=== PATIENT | female | born 1945 | race Caucasian/White ===

== ENCOUNTER 2017-02-24 08:58 | Outpatient (CLI) ==
--- NOTE | 2017-02-24 09:24 | DI ---
EXAM: PA and lateral views of the chest HISTORY: Chronic obstructive pulmonary disease COMPARISON: Chest x-ray 08/13/[address] chest 06/27/2012 FINDINGS: The cardiomediastinal silhouette is normal. There is no pneumothorax or pleural effusion . There is no consolidation, nodule or mass. Lungs are hyperinflated with apical pleural thickenin g and traction bronchiectasis. The osseous structures are unchanged IMPRESSION: Hyperinflation and changes consistent with chronic obstructive pulmonary disease. There is no acute consolidation.
== END 2017-02-24 08:59 | disposition home or self-care (01) ==
LOC: RAD 08:58
PROVIDERS: ATTEND Nurse Practitioner Family
DX: J44.9 Chronic obstructive pulmonary disease, unspecified (principal)

== ENCOUNTER 2018-01-09 17:27 | Emergency (ER) ==
[2018-01-09 17:40] VITALS: BP 139/61; TEMP 96.5
[2018-01-09] MEDS ORDERED: DUONEB NEB STA (17:43)
[2018-01-09] MEDS ORDERED: SOLU-MEDROL 125 MG IVP STA (17:43)
--- NOTE | 2018-01-09 17:48 | ED.PDOC ---
General ED Provider: Dr. SUZY ROSALES Chief Complaint: Shortness of Air Stated Complaint: Patient is a 72 year old female who has a history of COPD on home oxygen at 5 liters comes to the ER with severe shortness of breath with weakness and limp saturation was 52. Time Seen by Physician: 17:48 Mode of Arrival: Walk-In Information Source: Family Primary Care Provider: NURYS BECKER Nursing and Triage Documentation Reviewed and Agree: Yes Reviewed sepsis parameters & appropriate labs ordered?: No System Inflammatory Response Syndrome: Pulse >90 BPM Sepsis Protocol: For patient's 13 years and over: Temp is 96.8 and below OR 101 and greater Pulse >90 BPM Resp >20/minute Acutely Altered Mental Status Are patient's symptoms suggestive of a new infection, such as: -Pneumonia -Skin, Soft Tissue -Endocarditis -UTI -Bone, Joint Infection -Implantable Device -Acute Abdominal Infection -Wound Infection -Meningitis -Blood Stream Catheter Infection -Unknown System Inflammatory Response Syndrome: Not Applicable Respiratory Complaint Exam - Respiratory Complaint/Exam Onset/Duration: just prior to arrival Symptoms Are: Still present Timing: Constant Initial Severity: Moderate Current Severity: Severe Location: Chest Character: Reports: Non-productive cough Aggravating: Reports: URI, Weather Associated Signs and Symptoms: Reports: Wheezing, URI. Denies: Rapid breathing , Dyspnea, Fever, Chills, Chest pain, Pleuritic chest pain, Hemoptysis, Dizziness, Calf pain, Calf swelling, Edema, Nasal congestion, Hoarseness, Sinus discomfort, Vomiting, Sore throat, Weight loss, Decreased oral intake, Increased thirst, Increased appetite, Increased urination Cardiac Risk Factors: Denies: Smoking, Elevated lipids Tuberculosis Risk Factors: Reports: Chronic Resp. Faliure. Denies: Communal living Home Oxygen Use: Yes (5 liters ) Recent Stress Test: No Recent Echo/LV Function: No Current Antibiotic Use: No Current Asthma Medication Use: Yes Respiratory Distress: Severe Inadequate Respiratory Effort: Yes Dysphagia Present: No Accessory Muscle Use: Yes Diminished Breath Sounds: Yes Sinus Tenderness: None Grunting Respirations: No Kussmaul Respirations: No Differential Diagnoses: Asthma, COPD Exacerbation, Pneumonia Review of Systems - Review Of Systems Constitutional: Reports: Weakness Ears, Nose, Mouth, Throat: Reports: No symptoms Respiratory: Reports: Short of air Cardiac: Reports: No symptoms GI: Reports: No symptoms : Reports: No symptoms Musculoskeletal: Reports: No symptoms Skin: Reports: No symptoms Neurological: Reports: Anxiety, Depressed Endocrine: Reports: No symptoms Hematologic/Lymphatic: Reports: No symptoms All Other Systems: Reviewed and Negative Past Medical History - Past Medical History Endocrine: Reports: DM 2, Hypothyroid, Dyslipidemia Cardiovascular: Reports: Hypertension Respiratory: Reports: COPD Hematological: Reports: Anemia (is on Iron ) Gastrointestinal: Reports: None Genitourinary: Reports: None Neuro/Psych: Reports: Anxiety, Depression Musculoskeletal: Reports: Arthritis Cancer: Reports: None Last Menstrual Period: HYSTERECTOMY - Surgical History General Surgical History: Reports: Hysterectomy, Cholecystectomy, Other ( Bladder sling ) - Family History Family History: Reports: None - Social History Smoking Status: Never smoker Hx Substance Use: No Alcohol Screening: None Physical Exam - Physical Exam Appearance: Ill-appearing, Obese Ill-appearing: Severe Eyes: MARIA FERNANDA, EOMI Respiratory: Airway patent, Breath sounds equal, Wheezes Cardiovascular: RRR, Pulses normal, No rub, No murmur GI/: Soft Musculoskeletal: No edema Skin: Pale, Cyanotic Neurological: Alert to verbal, Alert to pain Psychiatric: Anxious Interpretation - Radiology Interpretation Radiology Interpretation By: Radiologist Radiology Results: Positive Exam Interpreted: CXR (Bilateral Pneumoina. ) - Manager International Rate: Normal Rhythm: Sinus Ectopy: None - EKG Interpretation Time of EKG #1: 18:08 Rate: Normal Rhythm: Sinus Ectopy: None [place]: [place] Interpretation: Normal EKG Re-Evaluation - Re-Evaluation Time of Re-Evaluation: 19:30 Status: Improved Vital Signs Stable: Yes (Blood pressure ) Lungs: Clear Skin: Warm and Dry Neuro: Alert and Oriented X3 (more awake and responsive.) Physician Notification - Case Discussed Physician Notified: Dr. Whitt Time of Notification: 19:30 (Accepted for transfer to [facility] ICU ) Critical Care Note - Critical Care Note Total Time (mins): 65 Course - Course Hematology/Chemistry: 01/09/18 18:00 01/09/18 18:00 Orders, Labs, Meds: Lab Review 01/09/18 01/09/18 01/09/18 17:46 18:00 18:00 WBC 12.66 H RBC 2.14 L Hgb 5.6 L* Hct 19.8 L MCV 92.5 MCH 26.2 L MCHC 28.3 L RDW Coeff of Preeti 18.0 H Plt Count 350 Immature Gran % (Auto) 1.7 Neut % (Auto) 80.5 Lymph % (Auto) 9.6 L [place] % (Auto) 7.3 Eos % (Auto) 0.6 Baso % (Auto) 0.3 Immature Gran # (Auto) 0.2 Neut # (Auto) 10.2 H Lymph # (Auto) 1.2 [place] # (Auto) 0.9 Eos # (Auto) 0.1 Baso # (Auto) 0.0 D-Dimer (Manual) Puncture Site R brach O2 Saturation 99.0 ABG pH 7.24 L* ABG pCO2 94.9 H ABG pO2 145.0 H ABG HCO3 40 H ABG Total CO2 43 H ABG Base Excess 13 H Tahir Test + O2 Delivery Device Nrb Oxygen Liter Flow 15.00 FiO2 % 100.0 Sodium 138 Potassium 5.2 H Chloride 96 L Carbon Dioxide 36 H Anion Gap 11.2 BUN 12 Creatinine 0.76 Estimated GFR (MDRD) 75.00 BUN/Creatinine Ratio 15.78 Glucose 212 H Lactic Acid Calcium 8.8 Total Bilirubin 0.2 AST 19 ALT 26 Alkaline Phosphatase 95 Total Protein 6.7 Albumin 2.8 L Globulin 3.9 Albumin/Globulin Ratio 0.72 Procalcitonin Stl Occult Blood (IFOB) Stool Occult Blood #2 Stool Occult Blood #3 01/09/18 01/09/18 01/09/18 18:00 18:00 18:00 WBC RBC Hgb Hct MCV MCH MCHC RDW Coeff of Preeti Plt Count Immature Gran % (Auto) Neut % (Auto) Lymph % (Auto) [place] % (Auto) Eos % (Auto) Baso % (Auto) Immature Gran # (Auto) Neut # (Auto) Lymph # (Auto) [place] # (Auto) Eos # (Auto) Baso # (Auto) D-Dimer (Manual) 888.17 Puncture Site O2 Saturation ABG pH ABG pCO2 ABG pO2 ABG HCO3 ABG Total CO2 ABG Base Excess Tahir Test O2 Delivery Device Oxygen Liter Flow FiO2 % Sodium Potassium Chloride Carbon Dioxide Anion Gap BUN Creatinine Estimated GFR (MDRD) BUN/Creatinine Ratio Glucose Lactic Acid 9.6 Calcium Total Bilirubin AST ALT Alkaline Phosphatase Total Protein Albumin Globulin Albumin/Globulin Ratio Procalcitonin 0.06 Stl Occult Blood (IFOB) Stool Occult Blood #2 Stool Occult Blood #3 01/09/18 01/09/18 18:35 18:37 WBC RBC Hgb Hct MCV MCH MCHC RDW Coeff of Preeti Plt Count Immature Gran % (Auto) Neut % (Auto) Lymph % (Auto) [place] % (Auto) Eos % (Auto) Baso % (Auto) Immature Gran # (Auto) Neut # (Auto) Lymph # (Auto) [place] # (Auto) Eos # (Auto) Baso # (Auto) D-Dimer (Manual) Puncture Site r brach O2 Saturation 90.0 L ABG pH 7.32 L ABG pCO2 78.0 H ABG pO2 67.0 L ABG HCO3 40 H ABG Total CO2 42 H ABG Base Excess 14 H Tahir Test + O2 Delivery Device bipap Oxygen Liter Flow FiO2 % 50.0 Sodium Potassium Chloride Carbon Dioxide Anion Gap BUN Creatinine Estimated GFR (MDRD) BUN/Creatinine Ratio Glucose Lactic Acid Calcium Total Bilirubin AST ALT Alkaline Phosphatase Total Protein Albumin Globulin Albumin/Globulin Ratio Procalcitonin Stl Occult Blood (IFOB) Negative Stool Occult Blood #2 No specimen received Stool Occult Blood #3 No specimen received Orders Category Date Time Status ABG DRAW REQUEST Stat CARDIO 01/09/18 17:46 Completed ABG DRAW REQUEST Stat CARDIO 01/09/18 18:37 Completed BIPAP Routine CARDIO 01/09/18 17:46 Completed EKG-(ED ONLY) Stat CARDIO 01/09/18 18:52 Completed NEBULIZER TREATMENT Stat CARDIO 01/09/18 17:45 Completed ED APPLY O2 .ONCE EMERGENCY 01/09/18 17:43 Active ED TAX LAWYER APPLIED .ONCE EMERGENCY 01/09/18 17:43 Active Ramirez [ED CATHETER INSERTION AND CARE] .ONCE EMERGENCY 01/09/18 18:37 Active IV [ED IV/MEDIPORT/POWERPORT] .ONCE EMERGENCY 01/09/18 17:55 Active ABG Stat LAB 01/09/18 17:46 Completed ABG Stat LAB 01/09/18 18:37 Completed BLOOD CULTURE (ED ONLY) Stat LAB 01/09/18 18:00 Results CBC W/ AUTO DIFF Stat LAB 01/09/18 18:00 Completed COMPREHENSIVE METABOLIC PANEL Stat LAB 01/09/18 18:00 Completed D-DIMER Stat LAB 01/09/18 18:00 Completed LACTIC ACID Stat LAB 01/09/18 18:00 Completed OCCULT BLOOD, STOOL Stat LAB 01/09/18 18:35 Completed PROCALCITONIN Stat LAB 01/09/18 18:00 Completed 0.9 % Sodium Chloride [Saline Flush] MEDS 01/09/18 17:55 Discontinued 1 syr IVF PRN PRN Ipratropium/Albuterol Neb [Duoneb] MEDS 01/09/18 17:43 Discontinued 1 vial NEB ONCE STA Lidocaine HCl [Uro-Jet] MEDS 01/09/18 18:37 Discontinued 10 ml [id number] ONCE STA Methylprednisolone Sod Succ/Pf [Solu-Medrol 125 mg] MEDS 01/09/18 17:43 Discontinued 125 mg IVP ONCE STA Piperacillin Sodium/Tazobactam [Zosyn 3.375 gm] 3.375 MEDS 01/09/18 18:54 Discontinued gm 0.9 % Sodium Chloride [Sodium Chloride] 50 ml IV ONCE CHEST, 1V AP ONLY Stat RADS 01/09/18 17:47 Completed Medications Discontinued Medications Generic Name Dose Route Start Last Admin Trade Name Freq PRN Reason Stop Dose Admin Albuterol/Ipratropium 1 vial 01/09/18 17:43 01/09/18 17:30 Duoneb NEB 01/09/18 17:44 1 vial ONCE STA Administration Piperacillin Sod/Tazobactam 50 mls @ 50 mls/hr 01/09/18 18:54 01/09/18 19:16 Sod 3.375 gm/ Sodium Chloride IV 01/09/18 19:53 50 mls/hr ONCE STA Administration Lidocaine HCl 10 ml 01/09/18 18:37 01/09/18 18:38 Uro-Jet [id number] 01/09/18 18:38 Not Given ONCE STA Methylprednisolone Sodium Succinate 125 mg 01/09/18 17:43 01/09/18 17:45 Solu-Medrol 125 Mg IVP 01/09/18 17:44 125 mg ONCE STA Administration Sodium Chloride 1 syr 01/09/18 17:55 Saline Flush IVF PRN PRN To flush IV Vital Signs: Temp Pulse Resp BP Pulse Ox 01/09/18 17:50 95 01/09/18 17:28 96.5 F L 94 H 10 L 139/61 52 L Departure - Departure Time of Disposition: 19:27 Disposition: TSF SHORT-TRM HOSP Discharge Problem: Bilateral pneumonia Qualifiers: Pneumonia type: due to unspecified organism Lung location: unspecified part of lung Qualified Code(s): J18.9 - Pneumonia, unspecified organism Anemia Qualifiers: Anemia type: iron deficiency Iron deficiency anemia type: unspecified iron deficiency Qualified Code(s): D50.9 - Iron deficiency anemia, unspecified Respiratory failure with hypercapnia Qualifiers: Chronicity: acute Qualified Code(s): J96.02 - Acute respiratory failure with hypercapnia Condition: Critical Pt referred to PMD for follow-up: Yes IPMP verified?: No Allergies/Adverse Reactions: Allergies No Known Allergies Allergy (Unverified 01/09/18 17:43) Home Medications: Ambulatory Orders Albuterol Sulfate [Proair Hfa] 1 puff INH DAILY 01/09/18 Amlodipine Besylate/Benazepril [Amlodipine-Benazepril 10-20 mg] 10 - 20 mg PO DAILY 01/09/18 Atorvastatin Calcium 40 mg PO DAILY 01/09/18 Budesonide/Formoterol Fumarate [Symbicort 160-4.5 Mcg Inhaler] 1 puff INH BID Bupropion HCl [Bupropion HCl ER] 200 mg PO DAILY 01/09/18 Citalopram Hydrobromide [Citalopram HBr] 20 mg PO DAILY 01/09/18 Gabapentin 300 mg PO BEDTIME 01/09/18 Iron Polysaccharide Complex [Poly-Iron] 150 mg PO BID 01/09/18 Meclizine HCl [Travel Sickness] 25 mg PO DAILY 01/09/18 Metformin HCl [Metformin HCl ER] 500 mg PO DAILY 01/09/18 Tiotropium [place] [Spiriva] 1 cap INH DAILY 01/09/18 Tramadol HCl [Ultram] 50 mg PO TID 01/09/18
[2018-01-09] MEDS ORDERED: URO-JET MUCOUSMEMB STA (18:37)
--- NOTE | 2018-01-09 18:51 | DI ---
EXAM: Single view of the chest. History: Cough. Comparison: Chest radiograph 02/24/2017 Findings: Heart size is normal. Bibasilar lung infiltrates. No pneumothorax. No acute osseous abn ormalities. Emphysema. Impression: Bibasilar pneumonia.
[2018-01-09] MEDS ORDERED: ZOSYN 3.375 GM 3.375 GM in SODIUM CHLORIDE 50 ML IV STA (18:54)
[2018-01-09 18:57] VITALS: BMI 33.0
== END 2018-01-09 20:20 | disposition short-term general hospital (02) ==
LOC: ED 17:27
DX: J18.9 Pneumonia, unspecified organism (principal); D50.9 Iron deficiency anemia, unspecified; J96.02 Acute respiratory failure with hypercapnia; J44.9 Chronic obstructive pulmonary disease, unspecified; E78.5 Hyperlipidemia, unspecified; E11.9 Type 2 diabetes mellitus without complications; E03.9 Hypothyroidism, unspecified; Z99.81 Dependence on supplemental oxygen; Z79.899 Other long term (current) drug therapy
CPT/HCPCS: 36415; 80053; 82272; 82803; 83605; 84145; 85025; 85379; 87040; 93005; 93010; 94640; 94660; 96365; 96375; 99285

== ENCOUNTER 2018-01-21 11:00 | Outpatient (CLI) | END 2018-01-21 11:01 | disposition short-term general hospital (02) | LOC: AMBL 11:00 | PROVIDERS: ATTEND Internal Medicine | DX: R53.1 Weakness (principal); R06.02 Shortness of breath; D64.9 Anemia, unspecified; R60.0 Localized edema ==

== ENCOUNTER 2018-01-31 10:10 | Emergency (ER) ==
[2018-01-31] MEDS ORDERED: DUONEB NEB STA (10:20)
[2018-01-31 10:25] VITALS: BP 169/71; TEMP 98.8; BMI 33.5
--- NOTE | 2018-01-31 10:36 | DI ---
Exam: Single x-ray of the chest. Comparison: 01/09/2018. Reason for exam: Short of air. FINDINGS: Similar appearing patchy airspace opacities in both lung bases with parenchymal changes garrison ggesting underlying chronic lung disease. The cardiac silhouette appears mildly prominent in size. Impression: Patchy airspace opacities in the lung bases likely representing atelectasis/pneumonia
[2018-01-31] MEDS ORDERED: ANECTINE ONE (10:42)
[2018-01-31] MEDS ORDERED: VERSED ONE ×2 (10:44→12:54)
[2018-01-31] MEDS ORDERED: NORCURON IVP STA (10:46)
[2018-01-31] MEDS ORDERED: SUBLIMAZE ONE (10:56)
[2018-01-31] MEDS ORDERED: NORCURON ONE (10:58)
--- NOTE | 2018-01-31 11:00 | ED.PDOC ---
General ED Provider: Dr. ROMELIA ROMAN Chief Complaint: Shortness of Air Stated Complaint: shortness of breath Time Seen by Physician: 10:12 (history from and son) Mode of Arrival: Wheelchair Information Source: Patient, Family Exam Limitations: Clinical condition Primary Care Provider: NURYS BECKER Referred to ED by: Other (PMD FAMILY CONTACTED OFFICE AND WAS TOLD TO BRING PT TO ED ) Nursing and Triage Documentation Reviewed and Agree: Yes (D/C FROM [facility] LAST WEEK , PT WAS THERE 4 DAYS ) Reviewed sepsis parameters & appropriate labs ordered?: Yes (FOR RESPIRATORY ISSUE AND GI BLLED AND TRANSFUSION) System Inflammatory Response Syndrome: Resp >20/Minute Sepsis Protocol: For patient's 13 years and over: Temp is 96.8 and below OR 101 and greater Pulse >90 BPM Resp >20/minute Acutely Altered Mental Status Are patient's symptoms suggestive of a new infection, such as: -Pneumonia -Skin, Soft Tissue -Endocarditis -UTI -Bone, Joint Infection -Implantable Device -Acute Abdominal Infection -Wound Infection -Meningitis -Blood Stream Catheter Infection -Unknown System Inflammatory Response Syndrome: Not Applicable Respiratory Complaint Exam - Respiratory Complaint/Exam Onset/Duration: 1 DAY AGO BECAME SHORT OF BREATH AND PROGRSSIVELY SOB Symptoms Are: Still present Timing: Constant Initial Severity: Moderate Current Severity: Moderate Character: Reports: Non-productive cough Aggravating: Reports: Recumbent position Associated Signs and Symptoms: Denies: Rapid breathing, Dyspnea, Fever, Chills, Chest pain, Pleuritic chest pain, Wheezing, Hemoptysis, Dizziness, Calf pain, Calf swelling, Edema, URI, Nasal congestion, Hoarseness, Sinus discomfort, Vomiting, Sore throat, Weight loss, Decreased oral intake, Increased thirst, Increased appetite, Increased urination History of Healthcare-Acquired Pneumonia: Admit w/in last 30 days (IN HOSPITAL) Related Surgical History: Reports: None Pulmonary Embolism Risk Factors: Bedrest Cardiac Risk Factors: Reports: Elevated lipids, Diabetes, Hypertension Tuberculosis Risk Factors: Reports: Diabetes, Chronic Resp. Faliure Status Asthmaticus Risk Factors: Reports: Prior Intubation Home Oxygen Use: Yes (5L AT ALL TIMES ) Recent Stress Test: No Recent Echo/LV Function: No Current Antibiotic Use: Yes Current Asthma Medication Use: Yes Respiratory Distress: Moderate Inadequate Respiratory Effort: Yes Dysphagia Present: No Stridor Present: No JVD Present: No Retractions: Not Present Diminished Breath Sounds: Yes Sinus Tenderness: None Grunting Respirations: No Kussmaul Respirations: No Differential Diagnoses: CHF, Pulmonary Edema, Pneumonia, Pulmonary Embolism, Bronchitis, Lower Resp. Infection Quality Indicators For Pneumonia: Antibiotics in 6hr-admit, SpO2 assessed, Empiric Antibiotic Rx, Mental status assessed Review of Systems - Review Of Systems Constitutional: Reports: Malaise, Weakness, Loss of appetite Eyes: Reports: No symptoms Ears, Nose, Mouth, Throat: Reports: No symptoms Respiratory: Reports: Cough, Short of air, Wheezing Cardiac: Reports: No symptoms GI: Reports: No symptoms : Reports: No symptoms Musculoskeletal: Reports: No symptoms Skin: Reports: No symptoms Neurological: Reports: No symptoms Endocrine: Reports: No symptoms Hematologic/Lymphatic: Reports: No symptoms All Other Systems: Reviewed and Negative Past Medical History - Past Medical History Previously Healthy: Yes Endocrine: Reports: DM 2, Hypothyroid, Dyslipidemia Cardiovascular: Reports: Hypertension Respiratory: Reports: COPD Hematological: Reports: Anemia (is on Iron ) Gastrointestinal: Reports: None Genitourinary: Reports: None Neuro/Psych: Reports: Anxiety, Depression Musculoskeletal: Reports: Arthritis Cancer: Reports: None Last Menstrual Period: unknown - Surgical History General Surgical History: Reports: Hysterectomy, Cholecystectomy, Other ( Bladder sling ) - Family History Family History: Reports: None - Social History Smoking Status: Never smoker Hx Substance Use: No Alcohol Screening: None Physical Exam - Physical Exam Appearance: Ill-appearing Ill-appearing: Severe Pain Distress: Mild Eyes: MARIA FERNANDA, EOMI, Conjunctiva clear ENT: Ears normal, Nose normal, Oropharynx normal Respiratory: Breath sounds diminished, Wheezes Cardiovascular: RRR, Pulses normal, No rub, No murmur GI/: Soft, Nontender, No masses, Bowel sounds normal, No Organomegaly Musculoskeletal: Normal strength, ROM intact, No edema, No calf tenderness Skin: Warm, Dry, Normal color Neurological: Sensation intact, Motor intact, Reflexes intact, Cranial nerves intact, Alert, Oriented Psychiatric: Affect appropriate, Mood appropriate Interpretation - Radiology Interpretation Radiology Interpretation By: Radiologist (INTUBATED) Procedures - Intubation Indication: Present: Respiratory Insufficiency, Airway Protection Time of Intubation: 10:46 (FIRST ATTEMPT) Medications: Yes: Succinylcholine, Propofol Type of Tube Used: Endotracheal Tube Size: 7.5 Cricoid Pressure Used: Yes Tube Ram Used: Yes Position of Tube at Lip: 21 Number of Attempts: 1 Suction Used: Yes Glidescope Used: No CO2 Detector Used: Yes Lung Sounds Equal Bilaterally: Yes Intubation Complications: Present: No complications Tube Inserted By: JESSIE LUTHER Tube Placement Verified by X-ray: Yes - Additional Procedures Additional Procedures: Other (E/J LINE FIRST ATTEMPT LEFT SIDE . LINE IN GOOD FUMCTION) Physician Notification - Case Discussed Physician Notified: jose Time of Notification: 12:21 Critical Care Note - Critical Care Note Total Time (mins): 120 Course - Course Hematology/Chemistry: 01/31/18 10:56 01/31/18 10:56 Orders, Labs, Meds: Lab Review 01/31/18 01/31/18 01/31/18 10:30 10:56 10:56 WBC 8.87 RBC 3.11 L Hgb 8.0 L Hct 28.8 L MCV 92.6 MCH 25.7 L MCHC 27.8 L RDW Coeff of Preeti 15.6 H Plt Count 400 Immature Gran % (Auto) 1.8 Neut % (Auto) 84.4 Lymph % (Auto) 7.0 L Rutherford % (Auto) 6.0 Eos % (Auto) 0.3 Baso % (Auto) 0.5 Immature Gran # (Auto) 0.2 Neut # (Auto) 7.5 H Lymph # (Auto) 0.6 Rutherford # (Auto) 0.5 Eos # (Auto) 0.0 Baso # (Auto) 0.0 Plt Morphology Comment Normal Hypochromasia 1+ Anisocytosis Not present Stomatocytes 1+ PT INR APTT Puncture Site R rad O2 Saturation 81.0 L ABG pH 7.296 L* ABG pCO2 107.4 H ABG pO2 55.0 L* ABG HCO3 52.4 H ABG Total CO2 > 50 H ABG Base Excess 26 H Tahir Test + O2 Delivery Device Nc Oxygen Liter Flow 5.00 FiO2 % Sodium 142 Potassium 5.4 H Chloride 91 L Carbon Dioxide 44 H* Anion Gap 12.4 BUN 6 L Creatinine 0.60 Estimated GFR (MDRD) 98.00 BUN/Creatinine Ratio 10.00 Glucose 123 H Calcium 8.9 Total Bilirubin 0.4 AST 20 ALT 18 Alkaline Phosphatase 95 Total Creatine Kinase 20 Troponin I < 0.0100 B-Natriuretic Peptide Total Protein 6.8 Albumin 2.8 L Globulin 4.0 Albumin/Globulin Ratio 0.70 Procalcitonin 01/31/18 01/31/18 01/31/18 10:56 10:56 10:56 WBC RBC Hgb Hct MCV MCH MCHC RDW Coeff of Preeti Plt Count Immature Gran % (Auto) Neut % (Auto) Lymph % (Auto) Rutherford % (Auto) Eos % (Auto) Baso % (Auto) Immature Gran # (Auto) Neut # (Auto) Lymph # (Auto) Rutherford # (Auto) Eos # (Auto) Baso # (Auto) Plt Morphology Comment Hypochromasia Anisocytosis Stomatocytes PT 9.8 INR 0.98 APTT 28.7 Puncture Site O2 Saturation ABG pH ABG pCO2 ABG pO2 ABG HCO3 ABG Total CO2 ABG Base Excess Tahir Test O2 Delivery Device Oxygen Liter Flow FiO2 % Sodium Potassium Chloride Carbon Dioxide Anion Gap BUN Creatinine Estimated GFR (MDRD) BUN/Creatinine Ratio Glucose Calcium Total Bilirubin AST ALT Alkaline Phosphatase Total Creatine Kinase Troponin I B-Natriuretic Peptide 72 Total Protein Albumin Globulin Albumin/Globulin Ratio Procalcitonin < 0.05 01/31/18 11:10 WBC RBC Hgb Hct MCV MCH MCHC RDW Coeff of Preeti Plt Count Immature Gran % (Auto) Neut % (Auto) Lymph % (Auto) Rutherford % (Auto) Eos % (Auto) Baso % (Auto) Immature Gran # (Auto) Neut # (Auto) Lymph # (Auto) Rutherford # (Auto) Eos # (Auto) Baso # (Auto) Plt Morphology Comment Hypochromasia Anisocytosis Stomatocytes PT INR APTT Puncture Site Rrad O2 Saturation 98.0 ABG pH 7.479 H ABG pCO2 66.3 H ABG pO2 98.0 ABG HCO3 49.3 H ABG Total CO2 50 H ABG Base Excess 26 H Tahir Test + O2 Delivery Device Vent Oxygen Liter Flow FiO2 % 50.0 Sodium Potassium Chloride Carbon Dioxide Anion Gap BUN Creatinine Estimated GFR (MDRD) BUN/Creatinine Ratio Glucose Calcium Total Bilirubin AST ALT Alkaline Phosphatase Total Creatine Kinase Troponin I B-Natriuretic Peptide Total Protein Albumin Globulin Albumin/Globulin Ratio Procalcitonin Orders Category Date Time Status ABG DRAW REQUEST Stat CARDIO 01/31/18 10:20 Completed ABG DRAW REQUEST Stat CARDIO 01/31/18 11:10 Completed EKG-(ED ONLY) Stat CARDIO 01/31/18 10:25 Completed NEBULIZER TREATMENT Stat CARDIO 01/31/18 10:20 Completed VENTILATOR Routine CARDIO 01/31/18 10:50 Ordered ED IV/MEDIPORT/POWERPORT .ONCE EMERGENCY 01/31/18 10:20 Active ABG Stat LAB 01/31/18 10:30 Completed ABG Stat LAB 01/31/18 11:10 Completed BLOOD CULTURE Stat LAB 01/31/18 10:56 Ordered BNP [B-TYPE NATRIURETIC PEPTIDE] Stat LAB 01/31/18 10:56 Completed CBC W/ AUTO DIFF Stat LAB 01/31/18 10:56 Completed COMPREHENSIVE METABOLIC PANEL Stat LAB 01/31/18 10:56 Completed CREATINE KINASE Stat LAB 01/31/18 10:56 Completed PARTIAL THROMBOPLASTIN TIME Stat LAB 01/31/18 10:56 Completed PROCALCITONIN Stat LAB 01/31/18 10:56 Completed PT WITH INR Stat LAB 01/31/18 10:56 Completed RBC MORPHOLOGY Stat LAB 01/31/18 10:56 Completed TROPONIN I Stat LAB 01/31/18 10:56 Completed 0.9 % Sodium Chloride [Saline Flush] MEDS 01/31/18 10:20 Active 1 syr IVF PRN PRN Ceftriaxone Sodium [Rocephin] MEDS 01/31/18 11:23 Discontinued 1 gm .ROUTE .STK-MED ONE Ceftriaxone Sodium [Rocephin] 1 gm MEDS 01/31/18 11:20 Discontinued 0.9 % Sodium Chloride [Sodium Chloride] 50 ml IV ONCE Fentanyl Vial [Sublimaze] MEDS 01/31/18 10:56 Discontinued 100 mcg .ROUTE .STK-MED ONE Fentanyl Vial [Sublimaze] MEDS 01/31/18 12:20 Stat 25 mcg IVP ONCE STA Ipratropium/Albuterol Neb [Duoneb] MEDS 01/31/18 10:20 Discontinued 1 vial NEB ONCE STA Midazolam HCl Inj [Versed] MEDS 01/31/18 10:44 Discontinued 5 mg .ROUTE .STK-MED ONE Propofol Inj [Diprivan 100 ml Vial] 100 ml MEDS 01/31/18 11:22 Discontinued IV .STK-MED Succinylcholine Chloride [Anectine] MEDS 01/31/18 10:42 Discontinued 20 mg .ROUTE .STK-MED ONE Vecuronium [place] [Norcuron] MEDS 01/31/18 10:58 Discontinued 10 mg .ROUTE .STK-MED ONE CHEST, 1V AP ONLY Stat RADS 01/31/18 10:19 Completed CHEST, 1V AP ONLY Stat RADS 01/31/18 11:14 Completed Medications Generic Name Dose Route Start Last Admin Trade Name Fremarita PRN Reason Stop Dose Admin Sodium Chloride 1 syr 01/31/18 10:20 01/31/18 11:52 Saline Flush IVF 1 syr PRN PRN Administration To flush IV Discontinued Medications Generic Name Dose Route Start Last Admin Trade Name Fremarita PRN Reason Stop Dose Admin Albuterol/Ipratropium 1 vial 01/31/18 10:20 01/31/18 10:20 Duoneb NEB 01/31/18 10:21 1 vial ONCE STA Administration Fentanyl Citrate 25 mcg 01/31/18 12:20 Sublimaze IVP 01/31/18 12:21 ONCE STA Ceftriaxone Sodium 1 gm/ 50 mls @ 75 mls/hr 01/31/18 11:20 01/31/18 11:37 Sodium Chloride IV 01/31/18 11:59 75 mls/hr ONCE STA Administration Vital Signs: Temp Pulse Resp BP Pulse Ox 01/31/18 10:50 20 01/31/18 10:11 98.8 F 100 H 24 169/71 H 93 L Departure - Departure Time of Disposition: 12:00 Disposition: TSF SHORT-TRM HOSP Discharge Problem: Anemia Acute respiratory failure Qualifiers: Respiratory failure complication: hypoxia Qualified Code(s): J96.01 - Acute respiratory failure with hypoxia Instructions: COPD (Chronic Obstructive Pulmonary Disease) (ED) Condition: Good Pt referred to PMD for follow-up: Yes IPMP verified?: No Additional Instructions: Please call your Family Physician as soon as possible to schedule a follow-up appointment. Allergies/Adverse Reactions: Allergies No Known Allergies Allergy (Verified 01/31/18 10:29) Home Medications: Ambulatory Orders Albuterol Sulfate [Proair Hfa] 1 puff INH DAILY 01/09/18 Amlodipine Besylate/Benazepril [Amlodipine-Benazepril 10-20 mg] 10 - 20 mg PO DAILY 01/09/18 Atorvastatin Calcium 40 mg PO DAILY 01/09/18 Budesonide/Formoterol Fumarate [Symbicort 160-4.5 Mcg Inhaler] 1 puff INH BID Bupropion HCl [Bupropion HCl ER] 200 mg PO DAILY 01/09/18 Citalopram Hydrobromide [Citalopram HBr] 20 mg PO DAILY 01/09/18 Gabapentin 300 mg PO BEDTIME 01/09/18 Iron Polysaccharide Complex [Poly-Iron] 150 mg PO BID 01/09/18 Meclizine HCl [Travel Sickness] 25 mg PO DAILY 01/09/18 Metformin HCl [Metformin HCl ER] 500 mg PO DAILY 01/09/18 Tiotropium [place] [Spiriva] 1 cap INH DAILY 01/09/18 Tramadol HCl [Ultram] 50 mg PO TID 01/09/18 Disposition Discussed With: Patient
[2018-01-31] MEDS ORDERED: DIPRIVAN 100 ML VIAL 1,000 MG in PREMIX INFUSION 100 ML VIAL 1 VIAL IV SCH (11:01)
--- NOTE | 2018-01-31 11:17 | ED.PDOC ---
Procedures - Intubation Time of Intubation: 10:45 Medications: Yes: Norcuron, Succinylcholine, Versed, Propofol, Other (fentanyl see nsg notes for times and dosages) Type of Tube Used: Endotracheal Tube Size: 7.5 Cricoid Pressure Used: Yes Tube Ram Used: Yes Position of Tube at Lip: 21cm Number of Attempts: 1 Suction Used: No Glidescope Used: No CO2 Detector Used: Yes Lung Sounds Equal Bilaterally: Yes Intubation Complications: Present: No complications Tube Inserted By: Dr Mclaughlin/Esvin Keita CRNA Tube Placement Verified by X-ray: Yes Conscious Sedation - Pre-op Assessment Weight: 214 lb 1.102 oz Surgical History: HYSTERECTROMY. GALLBLADDER. BLADDER SLING - Medical History Past Medical History: Hypertension, Diabetes, Thyroid, High Lipids, COPD, Depression, Anxiety, Arthritis Other History: GI bleed, Intubation
--- NOTE | 2018-01-31 11:18 | ED.PDOC ---
Procedures - IV/Art Line Insertion Location: lt wrist Type of Line: Peripheral IV Invasive Line/IV Catheter Gauge: 22 (IV line, / blood draw for lab) Number of Attempts: 1 Blood Return Positive: Yes Invasive Line/IV Flushes Without Difficulty: Yes Conscious Sedation - Pre-op Assessment Weight: 214 lb 1.102 oz Surgical History: HYSTERECTROMY. GALLBLADDER. BLADDER SLING - Medical History Past Medical History: Hypertension, Diabetes, Thyroid, High Lipids, COPD, Depression, Anxiety, Arthritis Other History: GI bleed, Intubation
[2018-01-31] MEDS ORDERED: ROCEPHIN 1 GM in SODIUM CHLORIDE 50 ML IV STA (11:20)
[2018-01-31] MEDS ORDERED: DIPRIVAN 100 ML VIAL 100 ML IV ONE (11:22)
[2018-01-31] MEDS ORDERED: ROCEPHIN ONE (11:23)
--- NOTE | 2018-01-31 11:46 | DI ---
EXAM: Chest one view, frontal view only. HISTORY: Intubation. COMPARISON: Earlier the same day at 1118 hours. FINDINGS: Endotracheal tube tip is at the level of the medial clavicles projecting over the tracheal air column. The heart size is normal. There is no pulmonary vascular congestion. There is increas ed opacity in both lung apices. Peribronchial thickening seen in both lungs. There is haziness over the lung bases which could represent mild consolidation. No pleural effusion or pneumothorax is see n. No acute osseous abnormality is identified. IMPRESSION: Endotracheal tube in satisfactory position.
[2018-01-31] MEDS ORDERED: VERSED IVP STA ×2 (11:48→13:05)
[2018-01-31] MEDS ORDERED: SUBLIMAZE IVP STA ×3 (11:50→12:23)
[2018-01-31] MEDS ORDERED: ANECTINE IVP STA (11:59)
== END 2018-01-31 13:07 | disposition short-term general hospital (02) ==
LOC: ED 10:10
DX: J96.01 Acute respiratory failure with hypoxia (principal); D64.9 Anemia, unspecified; R06.02 Shortness of breath; J44.9 Chronic obstructive pulmonary disease, unspecified; E78.5 Hyperlipidemia, unspecified; E11.9 Type 2 diabetes mellitus without complications; I10 Essential (primary) hypertension; R53.1 Weakness; R53.83 Other fatigue; E03.9 Hypothyroidism, unspecified; Z79.899 Other long term (current) drug therapy
CPT/HCPCS: 36415; 80053; 82550; 82803; 83880; 84145; 84484; 85008; 85025; 85610; 85730; 87040; 93005; 93010; 94640; 96365; 96366; 96368; 96375; 96376; 99285

== ENCOUNTER 2018-02-12 14:54 | Outpatient (CLI) | END 2018-02-12 14:55 | disposition short-term general hospital (02) | LOC: AMBL 14:54 | PROVIDERS: ATTEND Emergency Medicine | DX: R06.02 Shortness of breath (principal); R53.83 Other fatigue; R41.0 Disorientation, unspecified; R06.2 Wheezing; J18.9 Pneumonia, unspecified organism ==

== ENCOUNTER 2018-03-07 01:31 | Outpatient (CLI) | END 2018-03-07 01:32 | disposition short-term general hospital (02) | LOC: AMBL 01:31 | PROVIDERS: ATTEND Internal Medicine | DX: R06.02 Shortness of breath (principal); R53.83 Other fatigue; I10 Essential (primary) hypertension; J44.9 Chronic obstructive pulmonary disease, unspecified; R40.2411 Glasgow coma scale score 13-15, in the field [EMT or ambulance] ==

== ENCOUNTER 2018-03-30 09:37 | Outpatient (CLI) ==
--- NOTE | 2018-03-30 10:10 | DI ---
EXAM: Two-view chest HISTORY: Chronic obstructive pulmonary disease COMPARISON: Single-view chest 01/31/2018 FINDINGS: The cardiomediastinal silhouette is stable. Emphysematous changes are again noted. There is bilateral apical pleural thickening with scarring within the right upper lobe. There is a thoracic dextroscoliosis. IMPRESSION: Emphysematous changes without evidence of active pulmonary disease.
== END 2018-03-30 09:38 | disposition home or self-care (01) ==
LOC: RAD 09:37
PROVIDERS: ATTEND Nurse Practitioner Family
DX: J44.9 Chronic obstructive pulmonary disease, unspecified (principal)

== ENCOUNTER 2018-10-15 21:41 | Emergency (ER) ==
[2018-10-15] MEDS: ATROPINE SULFATE SDV IVP STA ×2 (21:41→22:05)
[2018-10-15] MEDS: EPINEPHRINE 1 MG/10 ML SYRINGE IV STA ×2 (21:46→22:03)
[2018-10-15] MEDS: LEVOPHED 4 MG in SODIUM CHLORIDE 246 ML IV SCH (21:52)
[2018-10-15] MEDS: SODIUM CHLORIDE 1,000 ML IV STA (22:00)
[2018-10-15] MEDS: ROMAZICON IVP STA (22:05)
[2018-10-15] MEDS: SODIUM BICARBONATE 7.5% IVP STA ×2 (22:07→22:15)
--- NOTE | 2018-10-15 22:23 | ED.PDOC ---
Procedures - Intubation Time of Intubation: 22:00 Type of Tube Used: Endotracheal Cricoid Pressure Used: No Tube Ram Used: Yes Position of Tube at Lip: 22 Number of Attempts: 1 Suction Used: Yes Glidescope Used: No CO2 Detector Used: Yes Lung Sounds Equal Bilaterally: Yes Intubation Complications: Present: No complications Tube Placement Verified by X-ray: Yes Conscious Sedation - Pre-op Assessment Surgical History: HYSTERECTROMY. GALLBLADDER. BLADDER SLING - Medical History Past Medical History: Hypertension, Diabetes, Thyroid, High Lipids, COPD, Depression, Anxiety, Arthritis Other History: GI bleed, Intubation
--- NOTE | 2018-10-15 22:25 | ED.PDOC ---
General ED Provider: Dr. DONNIE HENDRICKSON-ER Chief Complaint: Non-specific Complaint Stated Complaint: found unresponsive at bedside---medics did cpr Time Seen by Physician: 22:23 Mode of Arrival: Ambulance Information Source: EMT Exam Limitations: Clinical condition Primary Care Provider: NURYS BECKER Nursing and Triage Documentation Reviewed and Agree: Yes Does patient meet sepsis criteria?: No System Inflammatory Response Syndrome: Not Applicable Sepsis Protocol: For patient's 13 years and over: Temp is 96.8 and below OR 101 and greater Pulse >90 BPM Resp >20/minute Acutely Altered Mental Status Are patient's symptoms suggestive of a new infection, such as: -Pneumonia -Skin, Soft Tissue -Endocarditis -UTI -Bone, Joint Infection -Implantable Device -Acute Abdominal Infection -Wound Infection -Meningitis -Blood Stream Catheter Infection -Unknown Cardiac Resuscitation - Cardiac Resuscitation/Physical Exam Onset/Duration: Unknown Witnessed Arrest: No Airway Prehospital Findings: Reports: Patent Breathing Prehospital Findings: Reports: Bradypnea Circulation/Rhythm Prehospital Findings: Reports: Pulses present Breathing Prehospital Intervention: Reports: Oxygen Circulation/Rhythm Prehospital Intervention: Reports: Chest compressions, IV/IO placed Breathing Prehospital Response: Present: ETT in airway Circulation/Rhythm Prehospital Response: Present: Pulses present Airway ED Findings: Patent Breathing ED Findings: Present: Apnea Disability/Neurological ED Findings: Present: Responsive Breathing ED Intervention: Oxygen Right Pupil: Reactive Left Pupil: Reactive Patient is a DNR: No Patient Has a Living Will: No Resuscitation Successful: Yes Differential Diagnoses: Acute MD, Asystole, Card. Rhythm Disturbance Quality Indicator For Non-Traumatic Chest Pain/Syncope: EKG Performed Past Medical History - Past Medical History Previously Healthy: Yes Endocrine: Reports: DM 2, Hypothyroid, Dyslipidemia Cardiovascular: Reports: Hypertension Respiratory: Reports: COPD Hematological: Reports: Anemia (is on Iron ) Gastrointestinal: Reports: None Genitourinary: Reports: None Neuro/Psych: Reports: Anxiety, Depression Musculoskeletal: Reports: Arthritis Cancer: Reports: None - Surgical History General Surgical History: Reports: Hysterectomy, Cholecystectomy, Other ( Bladder sling ) - Family History Family History: Reports: None - Social History Smoking Status: Never smoker Hx Substance Use: No Alcohol Screening: None Interpretation - Radiology Interpretation Radiology Interpretation By: ED Physician Radiology Results: Positive Exam Interpreted: Portable CXR Re-Evaluation - Re-Evaluation Time of Re-Evaluation: 22:25 Status: Improved Vital Signs Stable: No Appearance: NAD Lungs: Clear Skin: Warm and Dry Neuro: Alert and Oriented X3 CV: RRR Physician Notification - Case Discussed Physician Notified: dr cathie bae er Time of Notification: 22:30 Critical Care Note - Critical Care Note Total Time (mins): 60 Course - Course Hematology/Chemistry: 10/15/18 22:05 10/15/18 22:05 Orders, Labs, Meds: Lab Review 10/15/18 10/15/18 10/15/18 22:05 22:05 22:05 WBC 23.40 H RBC 2.85 L Hgb 7.5 L Hct 25.5 L MCV 89.5 MCH 26.3 L MCHC 29.4 L RDW Coeff of Preeti 15.3 H Plt Count 323 Neutrophils % (Manual) 29.0 L Lymphocytes % (Manual) 56.0 H Monocytes % (Manual) 3.0 Eosinophils % (Manual) 3.0 Metamyelocytes % 1.0 Reactive Lymphocytes 8.0 H Anisocytosis Not present Sodium 129.4 L Potassium 6.00 H Chloride 96.9 L Carbon Dioxide 19.0 L Anion Gap 19.50 BUN 32.9 H Creatinine 2.82 H Estimated GFR (MDRD) 16.00 BUN/Creatinine Ratio 11.66 Glucose 378.2 H Lactic Acid 7.19 H Calcium 8.25 L Total Bilirubin 0.12 L AST 54.4 H ALT 37.1 H Alkaline Phosphatase 88.5 Total Creatine Kinase Troponin I Total Protein 6.05 L Albumin 3.36 L Globulin 2.69 Albumin/Globulin Ratio 1.24 10/15/18 22:05 WBC RBC Hgb Hct MCV MCH MCHC RDW Coeff of Preeti Plt Count Neutrophils % (Manual) Lymphocytes % (Manual) Monocytes % (Manual) Eosinophils % (Manual) Metamyelocytes % Reactive Lymphocytes Anisocytosis Sodium Potassium Chloride Carbon Dioxide Anion Gap BUN Creatinine Estimated GFR (MDRD) BUN/Creatinine Ratio Glucose Lactic Acid Calcium Total Bilirubin AST ALT Alkaline Phosphatase Total Creatine Kinase 40.2 Troponin I < 0.012 Total Protein Albumin Globulin Albumin/Globulin Ratio Orders Category Date Time Status ABG DRAW REQUEST Stat CARDIO 10/15/18 21:51 Ordered EKG-(ED ONLY) Stat CARDIO 10/15/18 21:51 Ordered ABG Stat LAB 10/15/18 21:51 Ordered BLOOD CULTURE (ED ONLY) Stat LAB 10/15/18 22:05 Received CBC W/ AUTO DIFF Stat LAB 10/15/18 22:05 Completed COMPREHENSIVE METABOLIC PANEL Stat LAB 10/15/18 22:05 Completed CREATINE KINASE Stat LAB 10/15/18 22:05 Completed LACTIC ACID Stat LAB 10/15/18 22:05 Completed MANUAL DIFFERENTIAL Stat LAB 10/15/18 22:05 Completed PROCALCITONIN Stat LAB 10/15/18 22:05 Received TROPONIN I Stat LAB 10/15/18 22:05 Completed URINALYSIS C & S IF INDICATED Stat LAB 10/15/18 21:51 Uncollected 0.9 % Sodium Chloride [Sodium Chloride] 246 ml MEDS 10/15/18 22:00 Ordered Norepinephrine Bitartrate Inj [Levophed] 4 mg IV 8 mcg/min CHEST, 1V AP ONLY Stat RADS 10/15/18 21:[address] HEAD W/O CONTRAST Stat RADS 10/15/18 21:52 Ordered CXR [CHEST, 1V AP ONLY] Stat RADS 10/15/18 21:52 Ordered Medications Generic Name Dose Route Start Last Admin Trade Name Naviq PRN Reason Stop Dose Admin Norepinephrine Bitartrate 4 mg 250 mls @ 30 mls/hr 10/15/18 22:00 / Sodium Chloride IV .[id number] ADILENE Protocol 8 MCG/MIN Departure - Departure Time of Disposition: 22:25 Disposition: TSF SHORT-TRM HOSP Discharge Problem: Cardiac arrest Instructions: Sick Sinus Syndrome (ED) Condition: Good Pt referred to PMD for follow-up: Yes IPMP verified?: No Allergies/Adverse Reactions: Allergies No Known Allergies Allergy (Verified 01/31/18 10:29) Home Medications: Ambulatory Orders Albuterol Sulfate [Proair Hfa] 1 puff INH DAILY 01/09/18 Amlodipine Besylate/Benazepril [Amlodipine-Benazepril 10-20 mg] 10 - 20 mg PO DAILY 01/09/18 Atorvastatin Calcium 40 mg PO DAILY 01/09/18 Budesonide/Formoterol Fumarate [Symbicort 160-4.5 Mcg Inhaler] 1 puff INH BID Bupropion HCl [Bupropion HCl ER] 200 mg PO DAILY 01/09/18 Citalopram Hydrobromide [Citalopram HBr] 20 mg PO DAILY 01/09/18 Gabapentin 300 mg PO BEDTIME 01/09/18 Iron Polysaccharide Complex [Poly-Iron] 150 mg PO BID 01/09/18 Meclizine HCl [Travel Sickness] 25 mg PO DAILY 01/09/18 Metformin HCl [Metformin HCl ER] 500 mg PO DAILY 01/09/18 Tiotropium [place] [Spiriva] 1 cap INH DAILY 01/09/18 Tramadol HCl [Ultram] 50 mg PO TID 01/09/18 Transfer Form Completed: Yes Disposition Discussed With: Family
--- NOTE | 2018-10-15 22:25 | ED.PDOC ---
Procedures - IV/Art Line Insertion Location: rt radial Type of Line: Other (art stickfor ABG) Number of Attempts: 1 Conscious Sedation - Pre-op Assessment Surgical History: HYSTERECTROMY. GALLBLADDER. BLADDER SLING - Medical History Past Medical History: Hypertension, Diabetes, Thyroid, High Lipids, COPD, Depression, Anxiety, Arthritis Other History: GI bleed, Intubation
--- NOTE | 2018-10-15 22:35 | DI ---
EXAM: Single view chest COMPARISON: Chest Xray from 03/30/2018 HISTORY: Cardiac arrest FINDINGS: There is an endotracheal tube in place with the tip of the endotracheal tube about 4 cm abo ve the aimee. There is vascular congestion. There is no infiltrate or large effusion or pneumothora x. Cardiac and mediastinal silhouettes show no acute abnormality. No acute soft tissue or osseous a bnormalities. IMPRESSION: 1. Intubation as described. 2. Vascular congestion.
[2018-10-21 05:14] VITALS: BP 62/32; TEMP 97; BMI 28.1
== END 2018-10-15 23:00 | disposition short-term general hospital (02) ==
LOC: ED 21:41
DX: I46.9 Cardiac arrest, cause unspecified (principal); Z79.899 Other long term (current) drug therapy; E11.9 Type 2 diabetes mellitus without complications; E03.9 Hypothyroidism, unspecified; E78.5 Hyperlipidemia, unspecified; I10 Essential (primary) hypertension; D64.9 Anemia, unspecified; J44.9 Chronic obstructive pulmonary disease, unspecified; R40.2431 Glasgow coma scale score 3-8, in the field [EMT or ambulance]; J96.90 Respiratory failure, unspecified, unspecified whether with hypoxia or hypercapnia; R57.0 Cardiogenic shock
CPT/HCPCS: 31500; 36415; 80053; 82550; 82803; 83605; 84145; 84484; 85007; 85025; 87040; 96361; 96365; 96366; 96375; 99291